=== PATIENT | male | born 1975 | race Caucasian/White ===

== ENCOUNTER 2017-04-11 21:08 | Observation (INO) ==
[2017-04-11] MEDS ORDERED: Ibuprofen 600 MG TABLET PO ONE (21:49)
--- NOTE | 2017-04-11 21:58 | Emergency Department Note ---
START Narrative - START START: I examined this patient and my medical decision-making was reviewed with the Resident Physician. I agree with the documented findings, disposition and treatment plan as described except to the extent set forth below. 42 year old male presnt to the ED from and states that he has had flu like symptoms for the past few days in addition to mild hemoptyosis with cogh and left sided pleuritic chest pain that is worse with deep breaths. Myrna has subjective fevers at home and states that did an influenza swab that was negative and was sent here for a PE rule out workup. WE will do labs and D- dimer since we cannot PERC out patient and if D-dimer is elevated evaluae with CTA chest. IF PE study is negative we will likely discharge myrna home.
[2017-04-11 22:10] LABS: Basophils % 0.3 %; Eosinophils # 0.1 K/mcL (0.0-0.6); Eosinophils % 0.6 %; Hemoglobin 14.9 g/dL (12.9-16.9); Immature Granulocytes % 0.5 % (0-4); Lymphocytes # 3.1 K/mcL (0.6-4.6); Lymphocytes % 20.4 %; Mean Corpuscular HGB Conc 34.7 g/dL (31.6-35.5); Mean Corpuscular Hemoglobin 30.3 pg (28.0-33.3); Mean Corpuscular Volume 87.4 fL (83.0-100.0); Mean Platelet Volume 9.1 fL (9.4-12.4); Monocytes # 1.6 K/mcL (0.0-1.3); Monocytes % 10.2 %; Neutrophils # 10.4 K/mcL (1.6-8.9); Platelet Count 292 K/mcL (140-400); Red Blood Count 4.92 M/mcL (4.19-5.50); Red Cell Distribution Width 11.7 % (11.5-14.5)
[2017-04-11 22:26] LABS: BUN/Creatinine Ratio 22 (6-26); Blood Urea Nitrogen 17 mg/dL (8-26); Calcium 9.7 mg/dL (8.6-10.8); Carbon Dioxide 22 mEq/L (19-29); Chloride 102 mEq/L (98-109); Glucose 92 mg/dL (70-99); Osmolality,Calculated 283 (280-300); Potassium 3.6 mEq/L (3.5-4.5); Sodium 136 mEq/L (136-145); eGFR For African Americans > 60 (> 60); eGFR For Non-African Americans > 60 (> 60)
--- NOTE | 2017-04-11 23:52 | Emergency Department Note ---
Disposition Clinical Impression: Pneumonia Qualifiers: Pneumonia type: due to unspecified organism Laterality: right Lung location: unspecified part of lung Qualified Code(s): J18.9 - Pneumonia, unspecified organism Disposition: Admitted As Inpatient Condition: Good General Adult HPI - General Chief complaint: ED General Medical Stated complaint: Urgent Care R/O PE Time Seen by Provider: 04/11/17 21:32 Source: patient Limitations: no limitations Nursing Notes Reviewed: Yes Vital Signs Reviewed: Yes - History of Present Illness HPI Narrative: Patient presents to the emergency department for evaluation of fever, cough, hemoptysis. Hemoptysis started yesterday x1. Patient's initial symptoms started on Monday. Patient's symptoms of fever and cough associated with inspiratory pain that has kept him from being able to take a deep breath. Patient has no history of DVT, PE, hormone use or recent travel. Patient was sent from urgent care for rule out pulmonary embolus. Pain Scale: 0 - Related Data Home Medications Medication Instructions Recorded Confirmed No Known Home Drugs 04/12/17 04/12/17 Allergies Allergy/AdvReac Type Severity Reaction Status Date / Time No Known Allergies Allergy Verified 04/11/17 21:17 Review of Systems: CONSTITUTIONAL: fever, fatigue; No weight loss or weakness HEENT: Eyes: No visual changes. Ears, Nose, Throat: No hearing loss, difficulty talking or unable to swallow. SKIN: No rash or itching. CARDIOVASCULAR: Inspiratory chest pain, No chest pressure or chest discomfort. No palpitations or edema. RESPIRATORY: As above, cough, hemoptysis GASTROINTESTINAL: No anorexia, nausea, vomiting or diarrhea. No abdominal pain or blood. GENITOURINARY: No burning on urination or hematuria. NEUROLOGICAL: No headache, dizziness, syncope, paralysis, ataxia, numbness or tingling in the extremities. No change in bowel or bladder control. MUSCULOSKELETAL: No muscle pain, back pain, joint pain or stiffness. Past Medical History - Past Medical History Medical history: Reports: no medical history, non-contributory Psychiatric history: Reports: no psych history - Social History Smoking Status: Current every day smoker Smokeless Tobacco Status: No Alcohol use: Reports: none Drug use: Reports: none Physical Exam General appearance: NAD, conversant Eyes: anicteric sclerae, moist conjunctivae; PERRL HENT: Atraumatic; oropharynx clear with moist mucous membranes and no mucosal ulcerations Neck: Normal inspection; Trachea midline; FROM, supple Lungs: rhonchi on right CV: RRR, no MRGs Abdomen: Soft, non-tender; no rebound or gaurding Extremities: No peripheral edema or extremity lymphadenopathy Skin: Normal temperature; no rash, ulcers or lesions Psych: Appropriate mood and affect Neuro: alert and oriented to person, place and time - General Limitations: no limitations General appearance: alert, in no apparent distress Course - Reevaluation(s) Reevaluation #1: Patient's d-dimer elevated. Will obtain a CTA. CTA is able to reliably rule out a segmental PE but unreliable to rule out a subsegmental PE due to the timing of the contrast dye. Patient has multiple opacities in the subsegmental regions which could be consistent with necrosis secondary to pulmonary emboli versus pneumonia. At this point with the patient' s inspiratory chest pain and elevated d-dimer and hemoptysis we will treat for possible PE with heparin so that it can be modified if the hemoptysis worsens. Hemoptysis at this point has only been one episode of blood-streaked sputum. The patient will be treated with Levaquin as discussed with the hospitalist. Patient will undergo further evaluation while in the hospital. - Consultations Consultation #1: Discussed with hospitalist. Agrees with heparin. Recommends Levaquin. Vital Signs Temperature 98.9 F 04/11/17 21:14 Pulse Rate 82 04/11/17 21:14 Respiratory Rate 18 04/11/17 21:14 Blood Pressure 140/87 04/11/17 21:14 O2 Sat by Pulse Oximetry 98 04/11/17 21:14 Temperature 98.1 F 04/12/17 01:46 Pulse Rate 72 04/12/17 01:46 Respiratory Rate 16 04/12/17 01:46 Blood Pressure 121/76 04/12/17 01:46 O2 Sat by Pulse Oximetry 93 04/12/17 01:46 Oxygen Delivery Oxygen Delivery Room Air Medical Decision Making - Medical Records Medical records reviewed: Yes I reviewed the patient's medical records. - Lab Data Lab results reviewed: Yes I reviewed the patient's lab results. Result diagrams: 04/12/17 01:37 04/12/17 01:37 Lab Results 04/11/17 04/11/17 04/11/17 Range/Units 21:59 21:59 21:59 WBC 15.3 H (4.3-11.1) K/mcL RBC 4.92 (4.19-5.50) M/mcL Hgb 14.9 (12.9-16.9) g/dL Hct 43.0 (37.5-50.1) % MCV 87.4 (83.0-100.0) fL MCH 30.3 (28.0-33.3) pg MCHC 34.7 (31.6-35.5) g/dL RDW 11.7 (11.5-14.5) % Plt Count 292 (140-400) K/mcL MPV 9.1 L (9.4-12.4) fL Immature Gran % 0.5 (0-4) % Seg Neutrophils % 68.0 % Lymphocytes % 20.4 % Monocytes % 10.2 % Eosinophils % 0.6 % Basophils % 0.3 % Neutrophils # 10.4 H (1.6-8.9) K/mcL Lymphocytes # 3.1 (0.6-4.6) K/mcL Monocytes # 1.6 H (0.0-1.3) K/mcL Eosinophils # 0.1 (0.0-0.6) K/mcL Basophils # 0.0 (0.0-0.2) K/mcL PT (9.4-12.1) Seconds INR APTT (26.0-36.0) Seconds D-Dimer 1422 H (0-500) ng/mLFEU Sodium 136 (136-145) mEq/L Potassium 3.6 (3.5-4.5) mEq/L Chloride 102 (98-109) mEq/L Carbon Dioxide 22 (19-29) mEq/L BUN 17 (8-26) mg/dL Creatinine 0.77 (0.72-1.25) mg/dL Est GFR ( Amer) > 60 (> 60) Est GFR (Non-Af Amer) > 60 (> 60) BUN/Creatinine Ratio 22 (6-26) Glucose 92 (70-99) mg/dL Calculated Osmolality 283 (280-300) Lactic Acid (0.5-2.2) mmol/L Calcium 9.7 (8.6-10.8) mg/dL Phosphorus (2.3-4.7) mg/dL Magnesium (1.6-2.6) mg/dL Total Bilirubin (0.2-1.2) mg/dL Direct Bilirubin (0.0-0.5) mg/dL Indirect Bilirubin (0.0-1.2) mg/dL AST (5-34) Units/L ALT (0-55) Units/L Alkaline Phosphatase (38-126) Units/L Troponin I (0-0.03) ng/mL Serum Total Protein (6.0-8.3) g/dL Albumin (3.5-5.0) g/dL Globulin (2.4-3.5) g/dL Albumin/Globulin Ratio (1.1-2.2) 04/11/17 04/11/17 04/11/17 Range/Units 21:59 23:47 23:47 WBC (4.3-11.1) K/mcL RBC (4.19-5.50) M/mcL Hgb (12.9-16.9) g/dL Hct (37.5-50.1) % MCV (83.0-100.0) fL MCH (28.0-33.3) pg MCHC (31.6-35.5) g/dL RDW (11.5-14.5) % Plt Count (140-400) K/mcL MPV (9.4-12.4) fL Immature Gran % (0-4) % Seg Neutrophils % % Lymphocytes % % Monocytes % % Eosinophils % % Basophils % % Neutrophils # (1.6-8.9) K/mcL Lymphocytes # (0.6-4.6) K/mcL Monocytes # (0.0-1.3) K/mcL Eosinophils # (0.0-0.6) K/mcL Basophils # (0.0-0.2) K/mcL PT 14.3 H (9.4-12.1) Seconds INR 1.3 APTT 27.4 (26.0-36.0) Seconds D-Dimer (0-500) ng/mLFEU Sodium (136-145) mEq/L Potassium (3.5-4.5) mEq/L Chloride (98-109) mEq/L Carbon Dioxide (19-29) mEq/L BUN (8-26) mg/dL Creatinine (0.72-1.25) mg/dL Est GFR ( Amer) (> 60) Est GFR (Non-Af Amer) (> 60) BUN/Creatinine Ratio (6-26) Glucose (70-99) mg/dL Calculated Osmolality (280-300) Lactic Acid (0.5-2.2) mmol/L Calcium (8.6-10.8) mg/dL Phosphorus 3.0 (2.3-4.7) mg/dL Magnesium 2.0 (1.6-2.6) mg/dL Total Bilirubin 0.7 (0.2-1.2) mg/dL Direct Bilirubin 0.5 (0.0-0.5) mg/dL Indirect Bilirubin 0.2 (0.0-1.2) mg/dL AST 15 (5-34) Units/L ALT 22 (0-55) Units/L Alkaline Phosphatase 94 (38-126) Units/L Troponin I 0.00 (0-0.03) ng/mL Serum Total Protein 7.3 (6.0-8.3) g/dL Albumin 3.4 L (3.5-5.0) g/dL Globulin 3.9 H (2.4-3.5) g/dL Albumin/Globulin Ratio 0.9 L (1.1-2.2) 04/11/17 Range/Units 23:47 WBC (4.3-11.1) K/mcL RBC (4.19-5.50) M/mcL Hgb (12.9-16.9) g/dL Hct (37.5-50.1) % MCV (83.0-100.0) fL MCH (28.0-33.3) pg MCHC (31.6-35.5) g/dL RDW (11.5-14.5) % Plt Count (140-400) K/mcL MPV (9.4-12.4) fL Immature Gran % (0-4) % Seg Neutrophils % % Lymphocytes % % Monocytes % % Eosinophils % % Basophils % % Neutrophils # (1.6-8.9) K/mcL Lymphocytes # (0.6-4.6) K/mcL Monocytes # (0.0-1.3) K/mcL Eosinophils # (0.0-0.6) K/mcL Basophils # (0.0-0.2) K/mcL PT (9.4-12.1) Seconds INR APTT (26.0-36.0) Seconds D-Dimer (0-500) ng/mLFEU Sodium (136-145) mEq/L Potassium (3.5-4.5) mEq/L Chloride (98-109) mEq/L Carbon Dioxide (19-29) mEq/L BUN (8-26) mg/dL Creatinine (0.72-1.25) mg/dL Est GFR ( Amer) (> 60) Est GFR (Non-Af Amer) (> 60) BUN/Creatinine Ratio (6-26) Glucose (70-99) mg/dL Calculated Osmolality (280-300) Lactic Acid 0.7 (0.5-2.2) mmol/L Calcium (8.6-10.8) mg/dL Phosphorus (2.3-4.7) mg/dL Magnesium (1.6-2.6) mg/dL Total Bilirubin (0.2-1.2) mg/dL Direct Bilirubin (0.0-0.5) mg/dL Indirect Bilirubin (0.0-1.2) mg/dL AST (5-34) Units/L ALT (0-55) Units/L Alkaline Phosphatase (38-126) Units/L Troponin I (0-0.03) ng/mL Serum Total Protein (6.0-8.3) g/dL Albumin (3.5-5.0) g/dL Globulin (2.4-3.5) g/dL Albumin/Globulin Ratio (1.1-2.2) - Radiology Data Radiology results reviewed: Yes I reviewed the patient's radiology results.
[2017-04-12] MEDS: 0.9 % Sodium Chloride 1,000 ML IVC SCH ×3 (00:10→03:31)
[2017-04-12 00:12] LABS: INR 1.3; Prothrombin Time 14.3 Seconds (9.4-12.1)
[2017-04-12 00:14] LABS: Activated Partial Thrombo Time 27.4 Seconds (26.0-36.0)
[2017-04-12] MEDS ORDERED: *HR* Heparin 5,000 UNIT/ML VIAL IVP ONE (00:19)
[2017-04-12] MEDS ORDERED: *HR* Heparin 5,000 UNIT/ML VIAL IVP PRN ×2 (00:19)
[2017-04-12 00:20] LABS: Albumin 3.4 g/dL (3.5-5.0); Albumin/Globulin Ratio 0.9 (1.1-2.2); Bilirubin,Direct 0.5 mg/dL (0.0-0.5); Bilirubin,Indirect 0.2 mg/dL (0.0-1.2); Bilirubin,Total 0.7 mg/dL (0.2-1.2); Globulin 3.9 g/dL (2.4-3.5); Total Protein 7.3 g/dL (6.0-8.3)
[2017-04-12] MEDS ORDERED: Levofloxacin 750 MG/150 ML 750 MG/150 ML BAG IVPB ONE (00:20)
[2017-04-12] MEDS ORDERED: Heparin 25,000 UNIT/500 ML D5W 25,000 UNIT/500 ML MLS IVC SCH (00:30)
[2017-04-12] MEDS ORDERED: Acetaminophen 325 MG TABLET PO PRN (01:23)
[2017-04-12] MEDS ORDERED: *HR* HYDROcodone/Acet 5/325 mg TABLET PO PRN (01:23)
[2017-04-12] MEDS ORDERED: *HR* Morphine 2 MG/ML SYRINGE IVP PRN (01:23)
[2017-04-12] MEDS ORDERED: Naloxone 0.4 MG/ML INJ IVP PRN (01:23)
[2017-04-12 01:44] LABS: Basophils # 0.1 K/mcL (0.0-0.2); Basophils % 0.4 %; Eosinophils # 0.1 K/mcL (0.0-0.6); Hematocrit 40.2 % (37.5-50.1); Immature Granulocytes % 0.4 % (0-4); Lymphocytes % 29.9 %; Mean Corpuscular HGB Conc 34.8 g/dL (31.6-35.5); Mean Corpuscular Hemoglobin 30.5 pg (28.0-33.3); Mean Corpuscular Volume 87.6 fL (83.0-100.0); Mean Platelet Volume 9.1 fL (9.4-12.4); Monocytes # 1.3 K/mcL (0.0-1.3); Monocytes % 9.8 %; Neutrophils # 7.8 K/mcL (1.6-8.9); Platelet Count 249 K/mcL (140-400); Red Blood Count 4.59 M/mcL (4.19-5.50); Red Cell Distribution Width 11.9 % (11.5-14.5); Segmented Neutrophils % 58.5 %
[2017-04-12 01:57] LABS: BUN/Creatinine Ratio 21 (6-26); Blood Urea Nitrogen 16 mg/dL (8-26); Calcium 8.7 mg/dL (8.6-10.8); Carbon Dioxide 22 mEq/L (19-29); Chloride 102 mEq/L (98-109); Glucose 121 mg/dL (70-99); Osmolality,Calculated 276 (280-300); Potassium 3.2 mEq/L (3.5-4.5); Sodium 132 mEq/L (136-145); eGFR For African Americans > 60 (> 60); eGFR For Non-African Americans > 60 (> 60)
--- NOTE | 2017-04-12 01:57 | Internal Med History&Physical ---
Date of Encounter: 04/12/17 Time of Encounter: 01:57 Assessment and Plan (1) Pneumonia Current visit: Yes Status: Acute Community acquired Possibly viral with superimposed streptococcal Continue levaquin Send sputum culture Patient has no O2 requriements , continue to monitor Qualifiers: Pneumonia type: due to unspecified organism Laterality: right Lung location: unspecified part of lung Qualified Code(s): J18.9 - Pneumonia, unspecified organism (2) Pulmonary embolism Current visit: Yes Status: Suspected Suspected Unlikely, as patient's pleuritic chest pain and blood tinged sputum can be explained by pneumonia Patient is hemodynamically stable, and has no hypoxia or tachycardia He has been started on heparin drip by ER Pulmonology will be consulted for further evaluation. Qualifiers: Pulmonary embolism type: other Chronicity: acute Acute cor pulmonale presence: without acute cor pulmonale Qualified Code(s): I26.99 - Other pulmonary embolism without acute cor pulmonale Internal Medicine - H&P: HPI Chief complaint: chest pain Admitted From: Home Plans for Post Hospital Care: Home History of present illness: Mr. Khan is a 42 year old male who presented to the ER With 3 days of flu- like symptoms, 2 days hx of chest pain and cough , with associated pleurisy Patient reports being in his usual state of health till 3 days ago when he developed rhinorrhea, sneezing , subjective fever and chills. 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 He presented to the Urgent care and was tested for Flu which was negative, he presented with pleuritic chest pain which started on the Right upper part of his chest and now also on his Left lower chest region. HE was then referred to r/o PE He denies radiation, or association with exertion. he reports associated cough with blood tinged sputum He denies weight loss, but has been having night sweats since onset of symptoms , no recent travels, no incarceration, no illicit drug use Patient is ambulatory, in no form of distress Work up in the ER revealed RUL pneumonia on CXR and due to increased D-dimers, CTA was done to r/o PE which shows multifocal pneumonia and possible infarcts. Patient also has leukocytosis, but has no other signs of sepsis He is not hypoxic, febrile or tachycardic Past Med Surg Social Fam HX - Past Medical History Medical history: no medical history, non-contributory Psychiatric history: no psych history - Social History Smoking Status: Current every day smoker Smokeless Tobacco Status: No Alcohol use: none Drug use: none Internal Medicine - H&P: Meds No Known Home Drugs 04/12/17 [History] 3 Allergy/AdvReac Type Severity Reaction Status Date / Time No Known Allergies Allergy Verified 04/11/17 21:17 All Systems PM: A 10-system review of systems was performed and is negative for pertinent findings except as documented above in the HPI. - Constitutional Constitutional: chills, fever(s) - EENT Eyes: no change in vision, no discharge, no pain, no photophobia Ears: no ear discharge, no ear pain, no tinnitus Nose, mouth and throat: no dysphagia, no nasal discharge, no neck pain, no sore throat - Cardiovascular Cardiovascular ROS IM: as per HPI - Respiratory Respiratory: as per HPI - Gastrointestinal Gastrointestinal: no abdominal pain, no diarrhea, no hematemesis, no hematochezia, no melena, no nausea, no vomiting - Musculoskeletal Musculoskeletal ROS IM: no numbness, no tingling - Integumentary Integumentary IM: no rash, no unusual bruising - Neurological Neurological ROS: no confusion, no convulsions, no focal weakness, no numbness, no tingling, no tremor(s) - Hematologic/Lymphatic Hematologic/Lymphatic: no easy bruising - Constitutional Vitals: Temp Pulse Resp BP Pulse Ox 98.1 F 72 16 121/76 93 04/12/17 01:46 04/12/17 01:46 04/12/17 01:46 04/12/17 01:46 04/12/17 01:46 General appearance: Present: A&O X 3, pleasant, no acute distress, answers questions appropriately - Head Head exam: Present: atraumatic, normocephalic - Eye Additional comments: anisocoria-chronic, from childhood cataract - Neck Neck exam general surgery: Present: supple, trachea midline. Absent: lymphadenopathy - Respiratory Additional comments: RUL rhonchi. Decreased air entry bilaterally - Cardiovascular Cardiovascular exam: Present: RRR, +S1, +S2. Absent: diastolic murmur, gallop, rubs, systolic murmur - GI/Abdominal GI/Abdominal exam: Present: normal bowel sounds, soft, no peritoneal signs. Absent: distended, tenderness - Extremities Exam Extremities exam: Present: warm, radial pulses palpable and symmetrical. Absent : calf tenderness, cyanotic, pedal edema - Neurological Exam Neurological exam: Present: alert, CN II-XII intact, oriented X3, no focal deficits. Absent: pronater drift, facial droop, speech deficit - Skin Skin exam: Present: dry, intact Internal Med - H&P Results - Labs CBC & Chem 7: 04/12/17 01:37 04/12/17 01:37 Labs: Short CBC 04/12/17 Range/Units 01:37 WBC 13.4 H (4.3-11.1) K/mcL Hgb 14.0 (12.9-16.9) g/dL Hct 40.2 (37.5-50.1) % Plt Count 249 (140-400) K/mcL Neutrophils # 7.8 (1.6-8.9) K/mcL
--- NOTE | 2017-04-12 06:41 | Pulmonology Consult Note ---
Date of Encounter: 04/12/17 Time of Encounter: 06:41 Assessment and Plan (1) Pneumonia Current Visit: Yes Status: Acute This is a 42yo gentleman who presented with flulike symptoms with associated very minor hemoptysis in the context of ongoing tobacco abuse. Clinically and radiographically I feel that this is most consistent with a infectious process and would treat as community-acquired pneumonia. Over the next 24 hours would recommend workup for broad infectious causes and if clinically no improvement or no clear identification of a cause from an infectious standpoint can be obtained then can consider proceeding with bronchoscopy for additional samples. The presentation beng most consient with infection and given the negative CTA I feel blossom post test probability of pulmonary embolus is low enough that I would recommend discontinuation of therapeutic anicoagulation. I suspect that the differential diagnosis as outlined by the radiologist including organizing pneumonia which would be more of a diagnosis of exclusion if infectious cause could not be first identified and eosinophilic pneumonia, in this case given the peripheral based lesions would be more consistent with chronic eosinophilic pneumonia, is much less likely given absence of significant clinical exposures/ ingestions.. I suspect that the blood-tinged sputum that he has is more related to infectious etiology as well. Recs: -Blood Sputum Cultures -check Strep PNA and Legionella Urine Antigen -Send Respiratory Infectious panel -Stop IV heparin -Incentive spirometry and pain control for pleuritic chest pain -Agree with empiric Tx with ABx for CAP. Deescalate based upon cultures -Tobacco cessation encouraged -Keep NPO at [place] for possible bronchoscopy tomorrow -F/u CT scan in 4-6 weeks to demonstrate resolution of peripheral based conslidative opacities. We will cont to follow. Qualifiers: Pneumonia type: due to unspecified organism Laterality: right Lung location: unspecified part of lung Qualified Code(s): J18.9 - Pneumonia, unspecified organism (2) Abnormal CT of the chest Current Visit: Yes Status: Acute (3) Tobacco abuse Current Visit: Yes Status: Acute (4) Hemoptysis Current Visit: Yes Status: Acute History of Present Illness Consult date: 04/12/17 Requesting physician: Vinny Mills Chief complaint: Chest Pain History of present illness: This is a pleasant 42-year-old gentleman with a history of tobacco abuse who presented to urgent care yesterday for symptoms of pleuritic chest pain nonproductive cough fever and malaise that started on Monday. He also had noticed some blood-tinged sputum during this time and given presentation at urgent care there is concern for pulmonary embolus and he was transferred to [facility] for further evaluation. A d-dimer was performed which was significantly elevated and a resultant CTA of the chest was performed which was negative for filling defect but notable for several peripheral based opacities of unclear etiology. In the differential was concern of pulmonary infarct and possible subradiographic filling pulmonary embolus and so the patient has remained on infusion of heparin. He presented with an elevated white count but was afebrile he is started on empiric antimicrobial therapy today he is still endorsing pleuritic chest pain. His was recently diagnosed with Medina's palsy and son had a rash associated with childhood he denies any other sick contacts no recent travel has not been hiking in the [place] denies any exposure to exotic animals and he does not keep any exotic pets at home. He smokes up to a pack a day since the age of 19 but has quit for several years time. 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 His mother has a history of lung cancer no other history of lung diseases in the family or personally. Past Med Surg Social Fam HX - Past Medical History Medical history: no medical history, non-contributory Psychiatric history: no psych history - Past Surgical History Surgical History: cataract - Social History Smoking Status: Current every day smoker Packs per day: <1 Smokeless Tobacco Status: No Alcohol use: none Drug use: none - Family History Mother Age: 62 Living Status: Still Living Hx Family Endocrine Disorder: Yes Father Age: 63 Hx Family Respiratory Disorders: Yes Hx Family Endocrine Disorder: Yes Medications and Allergies No Known Home Drugs 04/12/17 [History] 3 Allergy/AdvReac Type Severity Reaction Status Date / Time No Known Allergies Allergy Verified 04/11/17 21:17 All Systems: A 10-system review of systems was performed and is negative for pertinent findings except as documented above in the HPI. Physical Examination Vital Signs: Vital Signs, Last 4 Hours Temp Pulse Resp BP Pulse Ox 04/12/17 03:36 98.3 F 72 16 120/82 93 General appearance: no acute distress ENT: oropharynx moist Neck: supple, no lymphadenopathy Effort: normal Auscultation: bilateral: clear Cardiovascular: regular rate and rhythm Gastrointestinal: normoactive bowel sounds Integumentary: normal Extremities: no cyanosis, no edema, no clubbing Musculoskeletal: no deformities normal mental status, non-focal exam, pupils equal and round, motor strength normal and symmetric mood appropriate Results - Laboratory Findings CBC and BMP: 04/12/17 01:37 04/12/17 01:37 PT/INR, D-dimer PT 14.3 Seconds (9.4-12.1) H 04/11/17 23:47 D-Dimer 1422 ng/mLFEU (0-500) H 04/11/17 21:59 Abnormal lab findings: Abnormal lab results WBC 13.4 K/mcL (4.3-11.1) H 04/12/17 01:37 MPV 9.1 fL (9.4-12.4) L 04/12/17 01:37 PT 14.3 Seconds (9.4-12.1) H 04/11/17 23:47 D-Dimer 1422 ng/mLFEU (0-500) H 04/11/17 21:59 Sodium 132 mEq/L (136-145) L 04/12/17 01:37 Potassium 3.2 mEq/L (3.5-4.5) L 04/12/17 01:37 Glucose 121 mg/dL (70-99) H 04/12/17 01:37 Calculated Osmolality 276 (280-300) L 04/12/17 01:37 Albumin 3.4 g/dL (3.5-5.0) L 04/11/17 23:47 Globulin 3.9 g/dL (2.4-3.5) H 04/11/17 23:47 Albumin/Globulin Ratio 0.9 (1.1-2.2) L 04/11/17 23:47 - Diagnostic Findings Chest x-ray: report reviewed, image reviewed CT scan - chest: report reviewed, image reviewed - Clinical Findings Intake & Output: Intake & Output 04/11/17 04/11/17 04/12/17 15:59 23:59 07:59 Intake Total 2000 / 3000 Output Total 0 / 0 Balance 2000 / 3000 Weight 94.914 kg Consult Discharge Plan - Plan Referrals: NONE,PCP [Primary Care Provider] - Tejinder Wray MD [Family Provider] -
[2017-04-12] MEDS ORDERED: Potassium Chloride Elixir 20 MEQ/15 ML UDC PO ONE (09:32)
--- NOTE | 2017-04-12 11:02 | Event Note ---
Date of Encounter: 04/12/17 Time of Encounter: 11:02 42-year-old male with no significant past medical history admitted with mild hemoptysis and right-sided pleuritic chest pain. CT angiogram of chest shows no evidence of major pulmonary embolism but shows multifocal pneumonia in right upper lobe and bilateral lower lobes. Patient seen and examined at bedside. Feels well, improving hemoptysis, continues to have productive cough. No fever or chills. Not requiring supplemental oxygen. Chest-S1, S2 heard, regular rate and rhythm. Lungs are clear to auscultation. Labs reviewed-serum potassium 3.2, improving leukocytosis, WBC 13.4 today. Bilateral multifocal pneumonia with hemoptysis-pulmonology consult appreciated. Low suspicion for pulmonary embolism. Discontinue IV heparin drip. Continue empiric IV antibiotics-Levaquin. Follow blood and sputum cultures. Send respiratory infection panel. Possible bronchoscopy tomorrow if continues to worsen. Supportive care.
--- NOTE | 2017-04-12 13:13 | Electrocardiograph Report ---
[address] [address] Test Date: 2017-04-12 Pat Name: Carlos Khan Department: 104 Room: 2A Gender: M [employer] Supervisor: : 1975 Requested By: Martha Greenfield Order Number: [id number] Reading MD: Devin Alonzo MD Measurements Intervals [place] Rate: 53 P: 36 [place]: 167 QRS: 30 QRSD: 98 T: 29 QT: 407 QTc: 389 Interpretive Statements SINUS BRADYCARDIA BASELINE ARTIFACT Electronically Signed On 04-12-2017 13:11:50 EST by Devin Alonzo MD
[2017-04-12 14:33] LABS: Adenovirus Not Detected (Not Detect); Bordetella Pertussis Not Detected (Not Detect); Chlamydophila pneumoniae Not Detected (Not Detect); Coronavirus 229E Not Detected (Not Detect); Coronavirus HKU1 Not Detected (Not Detect); Coronavirus NL63 Not Detected (Not Detect); Coronavirus OC43 Not Detected (Not Detect); Human Metapneumovirus Not Detected (Not Detect); Human Rhinovirus/Enterovirus Not Detected (Not Detect); Influenza A Subtype 2009 H1 Not Detected (Not Detect); Influenza A Untypeable Not Detected (Not Detect); Influenza B Not Detected (Not Detect); Mycoplasma pneumoniae Not Detected (Not Detect); Parainfluenza Virus 1 Not Detected (Not Detect); Parainfluenza Virus 2 Not Detected (Not Detect); Parainfluenza Virus 3 Not Detected (Not Detect); Parainfluenza Virus 4 Not Detected (Not Detect); Respiratory Syncytial Virus Not Detected (Not Detect)
[2017-04-12] MEDS: *HR* Heparin 5,000 UNIT/ML VIAL SQ SCH ×2 (17:19→22:36)
[2017-04-12] MEDS ORDERED: Levofloxacin 750 MG/150 ML 750 MG/150 ML BAG IVPB SCH (23:00)
[2017-04-13] MEDS: *HR* Heparin 5,000 UNIT/ML VIAL SQ SCH (05:20)
[2017-04-13 06:54] LABS: Hemoglobin 14.6 g/dL (12.9-16.9); Immature Platelets 2.6 % (1.1-6.1); Mean Corpuscular Hemoglobin 30.6 pg (28.0-33.3); Mean Corpuscular Volume 90.1 fL (83.0-100.0); Mean Platelet Volume 9.8 fL (9.4-12.4); Platelet Count 310 K/mcL (140-400); Red Blood Count 4.77 M/mcL (4.19-5.50); Red Cell Distribution Width 11.9 % (11.5-14.5)
[2017-04-13 06:59] LABS: BUN/Creatinine Ratio 14 (6-26); Blood Urea Nitrogen 11 mg/dL (8-26); Calcium 9.3 mg/dL (8.6-10.8); Carbon Dioxide 23 mEq/L (19-29); Chloride 108 mEq/L (98-109); Glucose 94 mg/dL (70-99); Osmolality,Calculated 291 (280-300); Potassium 3.8 mEq/L (3.5-4.5); eGFR For African Americans > 60 (> 60); eGFR For Non-African Americans > 60 (> 60)
[2017-04-13 07:00] LABS: Sodium 141 mEq/L (136-145)
--- NOTE | 2017-04-13 07:21 | Pulmonology Progress Note ---
Date of Encounter: 04/13/17 Time of Encounter: 07:17 Assessment and Plan (1) Pneumonia Current Visit: Yes Status: Acute This is a 42-year-old gentleman who presented with flulike symptoms with peripheral base consolidative opacities overall picture is consistent with pneumonia cultures as far has been negative including respiratory infectious panel he is also presented with minor hemoptysis which is related to infection he has a long smoking history but is dedicated to abstinence. I do not feel given the clinical improvement in the last 24 hours bronchoscopy is warranted at this time. Recommendations would be to continue antimicrobials in the form of a respiratory fluoroquinolone to complete a seven-day course this can be transitioned to oral formulation. Smoking cessation counseling given Please discharge patient was short acting beta agonist with instruction on use from respiratory therapist He will need outpatient pulmonary follow-up in 4-[address] imaging at that time I gave the patient my card. I also reinforced that if symptoms should worsen in the next 24-48 hours or increasing hemoptysis that he should go to the emergency department at once Thank you for allowing us to participate in the care of Mr. Khan Pulmonary will sign off please call with questions Qualifiers: Pneumonia type: due to unspecified organism Laterality: right Lung location: unspecified part of lung Qualified Code(s): J18.9 - Pneumonia, unspecified organism (2) Abnormal CT of the chest Current Visit: Yes Status: Acute (3) Tobacco abuse Current Visit: Yes Status: Acute (4) Hemoptysis Current Visit: Yes Status: Acute Subjective Principal diagnosis: Pneumonia Interval history: Mr. Jackson did well overnight he says that he still has some mild chest pain in the scapular region but he was able to lay on his right side for the first time since symptoms started and sleep on that side. He has had some productive cough but no rodrigo hemoptysis. He says "I am ready to go home" encouragingly he is also stated that his "done with cigarettes" I reinforced the need to abstain from tobacco and offered nicotine replacement which he politely declined Objective PUL Vital signs: Last Vital Signs Temp 98.9 F 04/13/17 03:47 Pulse 61 04/13/17 03:47 Resp 20 04/13/17 03:47 BP 137/80 04/13/17 03:47 Pulse Ox 96 04/13/17 03:47 General appearance: no acute distress Auscultation: bilateral: clear Cardiovascular: regular rate and rhythm Integumentary: normal Extremities: no cyanosis Musculoskeletal: no deformities normal mental status, non-focal exam Results - Laboratory Findings CBC and BMP: 04/13/17 05:58 04/13/17 05:58 PT/INR, D-dimer PT 14.3 Seconds (9.4-12.1) H 04/11/17 23:47 D-Dimer 1422 ng/mLFEU (0-500) H 04/11/17 21:59 Abnormal lab findings: Abnormal lab results WBC 11.7 K/mcL (4.3-11.1) H 04/13/17 05:58 PT 14.3 Seconds (9.4-12.1) H 04/11/17 23:47 D-Dimer 1422 ng/mLFEU (0-500) H 04/11/17 21:59 Albumin 3.4 g/dL (3.5-5.0) L 04/11/17 23:47 Globulin 3.9 g/dL (2.4-3.5) H 04/11/17 23:47 Albumin/Globulin Ratio 0.9 (1.1-2.2) L 04/11/17 23:47 - Microbiology Findings Microbiology Findings: Microbiology, Last 48 Hours 04/12/17 11:20 Sputum Culture - Final Sputum - Clinical Findings Intake & Output: Intake & Output 04/12/17 04/12/17 04/13/17 15:59 23:59 07:59 Intake Total 234 / 234 150 / 150 Balance 234 / 234 150 / 150 Weight 95.1 kg Consult Discharge Plan - Plan Referrals: Tejinder Wray MD [Family Provider] - NONE,PCP [Primary Care Provider] -
[2017-04-13 07:33] VITALS: BP 111/69
[2017-04-13 08:08] LABS: Lymphocytes # 2.3 K/mcL (0.6-4.6); Monocytes # 0.5 K/mcL (0.0-1.3); Neutrophils # 8.9 K/mcL (1.6-8.9); Platelet Estimate Normal (Normal); Reactive Lymphocytes Present (Not Present)
--- NOTE | 2017-04-13 10:18 | Discharge Summary ---
Date of Encounter: 04/13/17 Time of Encounter: 10:13 - Discharge Diagnosis (1) Pneumonia Priority: Primary Status: Acute Qualifiers: Pneumonia type: due to unspecified organism Laterality: bilateral Lung location: unspecified part of lung Qualified Code(s): J18.9 - Pneumonia, unspecified organism (2) Tobacco abuse Priority: Secondary Status: Chronic (3) Hemoptysis Priority: Primary Status: Acute - Discharge Medications Prescriptions: Albuterol Sulfate [Albuterol Inhaler] 2 puff IH Q6HR PRN 30 Days hfa.aer.ad PRN Reason: Shortness Of Breath/Wheezing levoFLOXacin [Levaquin] 750 mg PO Q24H 5 Days tablet Home Medications: Albuterol Sulfate [Albuterol Inhaler] 2 puff IH Q6HR PRN 30 Days hfa.aer.ad [Rx] levoFLOXacin [Levaquin] 750 mg PO Q24H 5 Days tablet 04/13/17 [Rx] Allergies/Adverse Reactions: 3 Allergy/AdvReac Type Severity Reaction Status Date / Time No Known Allergies Allergy Verified 04/11/17 21:17 Date of admission: 04/12/17 00:37 Primary care physician: PCP NONE Consults: 04/12/17 01:25 Consult to Pulmonology [CONS] Routine Consulting Provider: [facility] Reason for Consult: Pneumonia, , hemptysis, suspect PE with infarct Call Completed: No Discharging clinician: Mary Martinez Anticipated date of discharge: 04/13/17 - Patient Status Disposition: Home, Self-Care Condition: Good Functional capacity at discharge: independent ambulation Overall status at discharge: patient is progressing back to baseline - Discharge Instructions Instructions: Pneumonia (DC) Follow Up With: Jessica Rodriguez MD [Partnered Physician] - ([facility] office will call with follow up) Santos Ellsworth MD [Partnered Physician] - 04/25/17 9:15 am (Please follow up with this primary care provide as scheduled. Please fill out your new patient packet that you will recieve in the mail. Bring your ID and insurance card with you to your appointment. Please arrive 30mins in advance. Thank you!) Additional Instructions: F/up with PCP- new appointment, in 1-2 weeks F/up with in 3-4 weeks - Diet and Activity Activity: resume usual activities as tolerated Diet: advance to your usual diet Hospital course: Mr. Khan is a 42 year old male with no significant past medical history was admitted with right-sided pleuritic chest pain and hemoptysis. CT angiogram done in the emergency room showed no evidence of pulmonary embolism but showed changes in right upper and bilateral lower lobes, suggestive of small infarcts vs multifocal pneumonia/eosinophilic pneumonia/fungal infections. Blood cultures were sent and patient was started on IV antibiotics-Levaquin. He was briefly started on anticoagulation with IV heparin drip due to concern for pulmonary embolism. Pulmonology was consulted and PE was thought to be a less likely diagnosis and anticoagulation was discontinued. Patient's symptoms gradually improved on antibiotics, sputum culture could not be sent. Blood cultures remain negative. Patient is currently tolerating oral diet, saturating well on room air and is medically stable for discharge with outpatient pulmonology follow-up to repeat CT chest for resolution of symptoms. Bronchoscopy was considered while inpatient, however this was held as patient continued to improve with antibiotics. Time spent discussing smoking cessation with patient: 3 to 10 minutes - Time Spent with Patient Total time spent providing and/or coordinating discharge services: Greater than 30 minutes (45 min) - Constitutional Vitals: Temp Pulse Resp BP Pulse Ox 97.8 F 58 17 111/69 96 04/13/17 07:32 04/13/17 07:32 04/13/17 07:32 04/13/17 07:32 04/13/17 07:32 General appearance: Present: A&O X 3, answers questions appropriately - Respiratory Respiratory exam: Present: CTAB. Absent: accessory muscle use, rales, rhonchi, wheezes
[2017-04-14] MEDS ORDERED: levoFLOXacin 750 MG TABLET PO SCH (23:00)
== END 2017-04-13 11:10 | disposition home or self-care (01) ==
LOC: 2ANU 21:08 → EMEROO 21:08 → SUATTDRO 04-12 00:37 → 2ANU 04-12 01:25
PROVIDERS: ADMIT Internal Medicine; ATTEND Internal Medicine